=== PATIENT | male | born 1995 | race Caucasian/White ===

== ENCOUNTER 2024-03-27 09:04 | Outpatient (CLI) | payer BC | END 2024-03-27 09:05 | disposition home or self-care (01) | LOC: SCSMRI 09:04 | PROVIDERS: ATTEND Orthopaedic Surgery | DX: M54.16 Radiculopathy, lumbar region (principal); M54.50 Low back pain, unspecified; M47.817 Spondylosis without myelopathy or radiculopathy, lumbosacral region | CPT/HCPCS: 72148 ==